=== PATIENT | female | born 1980 | race Caucasian/White ===

== ENCOUNTER 2021-10-27 10:45 | Emergency (ER) | payer BC ==
[~2021-10-27] VITALS: Ht 167.6 cm; Wt 80.7 kg
[2021-10-27] MEDS ORDERED: ONDANSETRON 4 MG/2 ML VIAL IV ONE (12:00)
[2021-10-27] MEDS ORDERED: ONDANSETRON 4 MG/2 ML VIAL ONE (12:00)
[2021-10-27] MEDS ORDERED: KETOROLAC TROMETHAMINE 15 MG INJ IVP ONE (12:00)
[2021-10-27] MEDS ORDERED: MORPHINE SULFATE 4 MG/1 ML DISP.SYRIN ONE (12:00)
[2021-10-27] MEDS ORDERED: MORPHINE SULFATE 4 MG/1 ML DISP.SYRIN IV ONE (12:00)
[2021-10-27] MEDS ORDERED: KETOROLAC TROMETHAMINE 15 MG INJ ONE (12:00)
[2021-10-27] MEDS ORDERED: SWABABLE VALVE TRANSFER SET EA MC ONE (12:01)
[2021-10-27] MEDS ORDERED: IV NORMAL SALINE 250 ML IV ONE (12:01)
[2021-10-27] MEDS ORDERED: IOHEXOL 350 100 ML INFUS..BTL ONE (12:01)
[2021-10-27 12:20] LABS: *URINE HCG, QUAL NEG (NEGATIVE)
[2021-10-27 12:47] LABS: HEMATOCRIT 40.3 % (31.2-41.9); MEAN CORPUSCULAR HEMOGLOBIN 30.1 uug (24.7-32.8); PLATELET COUNT (AUTO) 132 K/uL (179-408)
[2021-10-27 13:01] LABS: CREATININE 0.7 mg/dL (0.6-1.3); POTASSIUM 3.8 mmol/L (3.5-5.1)
[2021-10-27] MEDS ORDERED: PENI500T PO (14:15)
[2021-10-27] MEDS ORDERED: PENICILLIN V POTASSIUM 500 MG TABLET PO ONE (14:15)
[2021-10-27] MEDS ORDERED: PENICILLIN V POTASSIUM 500 MG TABLET ONE (14:19)
--- NOTE | 2021-10-27 14:20 | NUR ---
at bedside discussing care plan with pt.
--- NOTE | 2021-10-27 14:21 | NUR ---
DCD instructions given to pt. who verbalized understanding. pt. left room ambultory no c/of pain, or any other discomfort. medicated with pennicillin as ordered.
[2021-10-27] MEDS ORDERED: HYDR20CR3 TOP (14:23)
[2021-10-27] MEDS ORDERED: HYDR-4209 PO (14:23)
== END 2021-10-27 14:31 | disposition home or self-care (01) ==
LOC: ER 10:45
DX: M27.69 Other endosseous dental implant failure (principal); F41.9 Anxiety disorder, unspecified; R94.31 Abnormal electrocardiogram [ECG] [EKG]; F43.10 Post-traumatic stress disorder, unspecified
CPT/HCPCS: 99285; 96374; 70491; 96375; 80048; 84703; 85025; 85651; 36415; 93005; J1885; J2405; Q9967; J2270; A4663